=== PATIENT | female | born 1960 | race Caucasian/White ===

== ENCOUNTER 2016-05-29 09:43 | Outpatient (CLI) | payer OTHER ==
[2016-05-29 10:16] LABS: #Basophils 0.1 thou/uL (0.0-0.2); #Eosinphils 0.2 thou/uL (0.0-0.7); #Lymphocytes 2.3 thou/uL (1.20-3.40); #Monocytes 0.5 thou/uL (0.11-0.59); #Neutrophils 4.4 thou/uL (1.40-6.50); %Basophils 1.2 % (0.0-1.0); %Eosinophils 2.1 % (0.0-10.0); %Monocytes 6.9 % (0.0-10.0); Hematocrit 43.4 % (36.0-47.0); Mean Platelet Volume 5.4 fL (7.4-10.4); White Blood Cell (WBC) Count 7.4 thou/uL (4.8-10.8)
[2016-05-29 10:38] LABS: ALT (SGPT) 33 U/L (0-55); AST (SGOT) 24 U/L (5-34); Alkaline Phosphatase 85 U/L (40-150); Anion Gap 15 mmol/L (10-20); BUN (Urea Nitrogen) 11 mg/dL (9.8-20.1); Bilirubin, Total 0.5 mg/dL (0.2-1.2); Calc. Creatinine Clearance 0 mL/min (70-130); Calcium 8.9 mg/dL (7.8-10.44); Carbon Dioxide 27 mmol/L (22-29); Chloride 105 mmol/L (98-107); Estimated GFR-MDRD 73; Globulin 3.2 g/dL (2.4-3.5); LDL Cholesterol, Calculated 134 mg/dL; Protein, Total 7.2 g/dL (6.0-8.3)
== END 2016-05-29 09:44 | disposition home or self-care (01) ==
LOC: BURLAB 09:43
PROVIDERS: ATTEND Family Medicine
DX: I10 Essential (primary) hypertension (principal); E78.5 Hyperlipidemia, unspecified
CPT/HCPCS: 36415; 80053; 80061; 84443; 85025

== ENCOUNTER 2024-01-16 07:31 | Inpatient (IN) | payer BC ==
[2024-01-16 14:03] VITALS: BMI 53.6
[2024-01-16] MEDS ORDERED: Bisacodyl 5 MG TAB PO PRN (14:10)
[2024-01-16] MEDS: HYDROcodone/Acetaminophen 5/325 mg Tablet PO PRN (15:20)
[2024-01-16] MEDS: Fish Oil 1,000 MG CAP PO SCH (16:00)
[2024-01-16] MEDS: Escitalopram Oxalate 10 mg Tablet PO SCH (21:15)
[2024-01-16] MEDS: Atorvastatin Calcium 10 MG TAB PO SCH (21:16)
[2024-01-16] MEDS: Aspirin 81 mg Enteric Coated Tablet PO SCH (21:16)
[2024-01-16] MEDS: Nystatin Powder 15 GM BOT TOP SCH (21:17)
[2024-01-16] MEDS: Calcium Carbonate + Vit D 500 MG TAB PO SCH ×2 (21:37)
[2024-01-16] MEDS: Artificial Tear Ophth Sol 15 ML BOT EA EYE PRN (23:13)
[2024-01-17] MEDS: Multivitamin W/ Minerals 1 TAB PO SCH (10:14)
[2024-01-17] MEDS: Cyanocobalamin (Vitamin B-12) 1,000 MCG TAB PO SCH (10:14)
[2024-01-17] MEDS: Lisinopril 20 MG TAB PO SCH (10:17)
[2024-01-17 12:32] VITALS: BMI 53.6
[2024-01-18] MEDS: Senokot S 8.6-50 MG TAB PO PRN (23:11)
[2024-01-19] MEDS: Docusate 100 MG CAP PO PRN (09:47)
[2024-01-20] MEDS: Acetaminophen 325 MG TAB PO PRN (18:28)
[2024-01-20] MEDS ORDERED: Cyclobenzaprine 10 MG TAB PO PRN (18:38)
[2024-01-21] MEDS ORDERED: Acetaminophen 325 MG TAB PO PRN (16:15)
[2024-01-23] MEDS ORDERED: Acetaminophen 500 MG TAB PO PRN (09:55)
[2024-01-23] MEDS: Acetaminophen 500 MG TAB PO SCH (11:36)
[2024-01-25 09:30] VITALS: BP 117/70; TEMP 98.1
== END 2024-01-25 09:25 | disposition home or self-care (01) | DRG 566 ==
LOC: BURMED 13:15
PROVIDERS: ADMIT Family Medicine; ATTEND Family Medicine
DX: S72.402K Unspecified fracture of lower end of left femur, subsequent encounter for closed fracture with nonunion (principal); F32.A Depression, unspecified; I10 Essential (primary) hypertension; E78.5 Hyperlipidemia, unspecified; F41.9 Anxiety disorder, unspecified; Z90.49 Acquired absence of other specified parts of digestive tract; Z90.89 Acquired absence of other organs; Z88.8 Allergy status to other drugs, medicaments and biological substances; Z88.0 Allergy status to penicillin; Z88.2 Allergy status to sulfonamides; Z98.890 Other specified postprocedural states